=== PATIENT | male | born 2000 | race Caucasian/White ===

== ENCOUNTER 2023-02-23 12:39 | Emergency (ER) | payer SELFPAY | END 2023-02-23 13:30 | disposition left against medical advice (07) | LOC: MW.ED 12:39 | DX: Z53.21 Procedure and treatment not carried out due to patient leaving prior to being seen by health care provider (principal) ==

== ENCOUNTER 2023-10-26 01:24 | Emergency (ER) | payer SELFPAY | END 2023-10-26 01:47 | disposition left against medical advice (07) | LOC: MW.ED 01:24 | DX: Z53.21 Procedure and treatment not carried out due to patient leaving prior to being seen by health care provider (principal) ==